=== PATIENT | male | born 1995 | race Hispanic/Latino ===

== ENCOUNTER 2025-01-07 17:25 | Emergency (ER) | payer SELFPAY ==
[~2025-01-07] VITALS: Ht 193 cm; Wt 124.7 kg
[2025-01-07 18:26] VITALS: PULSE 69; RESP 18; TEMP 98.2
[2025-01-07] MEDS: KETOROLAC TROMETHAMINE 30 MG/ML VIAL IV STA (18:46)
[2025-01-07] MEDS ORDERED: IOPAMIDOL 370 MG/ML 100 ML INFUS..BTL INJ ONE (19:34)
[2025-01-07] MEDS ORDERED: KETOROLAC TROME10 MG PO (20:48)
[2025-01-07] MEDS ORDERED: ULTRAM 50MG50 MG PO (20:48)
[2025-01-08 00:34] VITALS: BP 129/82; PULSE 73; RESP 18; O2SAT 100
== END 2025-01-07 21:25 | disposition home or self-care (01) ==
LOC: ER 17:50
DX: S20.212A Contusion of left front wall of thorax, initial encounter (principal); X95.9XXA Assault by unspecified firearm discharge, initial encounter; Y92.488 Other paved roadways as the place of occurrence of the external cause; C64.2 Malignant neoplasm of left kidney, except renal pelvis
CPT/HCPCS: 71260; 99283; J1885; Q9967